=== PATIENT | female | born 1965 | race Two or more races ===

== ENCOUNTER 2024-11-06 16:30 | Outpatient (RCR) | payer MEDICAID, SELFPAY ==
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
--- NOTE | 2024-10-23 16:50 | PT.ODAYNRPT ---
PT Outpatient Daily Note OP Daily Note Outpatient Physical Therapy Treatment Date: 10/23/24 Visit Reasons: lumbago with sciatica right side Subjective: Low pain level today of LB Objective: See F/S for therex MT: STM L5-S1 area with flexbar x5' Assessment: Low tissue irritability with therex and MT today and no pain with trunk extension in prone Plan: Continue per POC Length of Time (minutes) of Treatment: 30 Minutes Procedure Charges Therapeutic Exercise 30 minutes: Yes
--- NOTE | 2024-10-30 17:41 | PT.ODAYNRPT ---
PT Outpatient Daily Note OP Daily Note Outpatient Physical Therapy Treatment Date: 10/30/24 Visit Reasons: lumbago with sciatica right side Subjective: Low pain level today of LB Objective: See F/S for therex MT: STM L5-S1 area with flexbar x7' Assessment: Low tissue irritability with therex and MT today and no pain with trunk extension in prone Plan: Continue per POC Length of Time (minutes) of Treatment: 30 Minutes Procedure Charges Therapeutic Exercise 30 minutes: Yes
--- NOTE | 2024-11-06 18:02 | PT.ODAYNRPT ---
PT Outpatient Daily Note OP Daily Note Outpatient Physical Therapy Treatment Date: 11/06/24 Visit Reasons: lumbago with sciatica right side Subjective: Low pain level today of LB Objective: See F/S for therex MT: STM L5-S1 area with flexbar x7' Assessment: Low tissue irritability with therex and MT today and no pain with trunk extension in prone Plan: Continue per POC Procedure Charges Therapeutic Exercise 30 minutes: Yes
== END 2024-11-12 23:59 | disposition home or self-care (01) ==
LOC: CPTX 16:30
PROVIDERS: PCP Family Medicine; Referring Provider Family Medicine; Visit Provider Family Medicine
DX: M54.16 Radiculopathy, lumbar region (principal); M54.41 Lumbago with sciatica, right side
CPT/HCPCS: 97110; 97162

== ENCOUNTER 2024-12-05 16:30 | Outpatient (RCR) | payer MEDICAID, SELFPAY ==
--- NOTE | 2024-11-13 18:16 | PT.ODAYNRPT ---
PT Outpatient Daily Note OP Daily Note Outpatient Physical Therapy Treatment Date: 11/13/24 Visit Reasons: Sciatica right side Subjective: Good days and bad days Objective: See F/S for therex Assessment: Slow progress with goals due to variable back pain. Plan: Continue per POC Length of Time (minutes) of Treatment: 30 Minutes Procedure Charges Therapeutic Exercise 30 minutes: Yes
--- NOTE | 2024-12-05 17:45 | PT.ODAYNRPT ---
PT Outpatient Daily Note OP Daily Note Outpatient Physical Therapy Treatment Date: 12/05/24 Visit Reasons: Sciatica right side Subjective: Increased LBP like burning after working all day in the [employer] Objective: See F/S for therex Assessment: Slow progress with goals due to variable back pain. Plan: Continue per POC Length of Time (minutes) of Treatment: 30 Minutes Procedure Charges Therapeutic Exercise 30 minutes: Yes
--- NOTE | 2024-12-17 17:59 | PT.ODS1RPT ---
PT OP Progress/Discharge Note Date of Service: 12/17/24 Progress Note/DC Note Progress Note/Discharge Note: DC Note Patient Information Visit Reasons: Sciatica right side Service Continue Service or Discharge: Discharge Discharge Date: 12/17/24 Status Subjective: Pt called to D/C and cancel today's appt Objective: No Rx, no charges Assessment: Pt attended the eval and 6 Rx sessions and then called to D/C, didn't give a reason. Plan: Self-D/C
== END 2024-12-12 23:59 | disposition home or self-care (01) ==
LOC: CPTX 16:30
PROVIDERS: PCP Family Medicine; Referring Provider Family Medicine; Visit Provider Family Medicine
DX: M54.16 Radiculopathy, lumbar region (principal); M54.41 Lumbago with sciatica, right side
CPT/HCPCS: 97110

== ENCOUNTER 2025-05-13 15:30 | Outpatient (RCR) | payer MEDICAID, SELFPAY ==
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
--- NOTE | 2025-05-02 17:27 | PT.ODAYNRPT ---
PT Outpatient Daily Note OP Daily Note Outpatient Physical Therapy Treatment Date: 05/02/25 Visit Reasons: Rt side sciatica Subjective: Pt c/o of minimal LBP that radiates down Rt LE. Objective: See F/S for therex performed Assessment: No increase in pain to low back with therex; minimal cues required to improve form with PPT. Good tolerance and appropriate fatigue with exercises. Plan: Continue with POX Length of Time (minutes) of Treatment: 30 Minutes Procedure Charges Therapeutic Exercise 30 minutes: Yes
--- NOTE | 2025-05-06 17:44 | PT.ODAYNRPT ---
PT Outpatient Daily Note OP Daily Note Outpatient Physical Therapy Treatment Date: 05/06/25 Visit Reasons: Rt side sciatica Subjective: Pt c/o of minimal LBP. Objective: See F/S for therex performed Assessment: Demo'd improvement with ability to maintain PPT and engage w/ supine marches and glute bridges. No increase in pain with therex, appropriate fatigue. Plan: Continue with POC Length of Time (minutes) of Treatment: 30 Minutes Procedure Charges Therapeutic Exercise 30 minutes: Yes
--- NOTE | 2025-05-08 17:14 | PT.ODAYNRPT ---
PT Outpatient Daily Note OP Daily Note Outpatient Physical Therapy Treatment Date: 05/08/25 Visit Reasons: Rt side sciatica Subjective: Pt c/o of LBP radiating down to Rt knee; states it is due to a long day at work. Objective: See F/S for therex performed Assessment: Min vc's and tc's to engage PPT and hold prior to bridging; pt able to self correct. Decrease in LBP and R LE pain post session. Advised to continue piriformis st and sciatic nerve glides at home. Plan: Continue with POC Length of Time (minutes) of Treatment: 30 Minutes Procedure Charges Therapeutic Exercise 30 minutes: Yes
--- NOTE | 2025-05-13 17:23 | PT.ODAYNRPT ---
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 Objective: See F/S for therex performed Assessment: Progressed to bug exercise, demo'd good ability to maintain PPT while extending opposite arm and leg. No increase in pain with therex performed. Plan: Continue with POC Length of Time (minutes) of Treatment: 30 Minutes Procedure Charges Therapeutic Exercise 30 minutes: Yes
== END 2025-05-14 23:59 | disposition home or self-care (01) ==
LOC: CPTX 15:30
PROVIDERS: PCP Family Medicine; Referring Provider Family Medicine; Visit Provider Family Medicine
DX: M54.41 Lumbago with sciatica, right side (principal)
CPT/HCPCS: 97110; 97162

== ENCOUNTER → 2025-06-05 | Outpatient (CLI) | payer MEDICAID, SELFPAY ==
--- NOTE | 2025-06-05 10:00 | XR_ITS ---
Examination: MRI lumbar spine without contrast Date and time of exam: June 05, 2025, 1150 hours INDICATIONS: Low back pain radiating down the right leg with weakness in the right leg 5 years Technique: Multiple MRI axial and sagittal sections lumbar spine. Sagittal T2-weighted images, TR 3500, TE 118 T1 weighted transverse sections, TR 688 T8.5, T2-weighted sagittal sections T1 weighted sagittal sections TR 621, TE 30 T2 axial sections, TR 4, 190, TE 84. Findings: Grade 1 anterolisthesis L4 on L5 Moderate disc narrowing posteriorly L4-L5 Diffuse lumbar disc desiccation most prominent at L4-L5 Adequate marrow signal lumbar vertebral bodies L5-S1 no disc protrusion L4-L5 moderate overall spinal stenosis, axial image 4, 6 mm central lumbar disc bulge extending to the foraminal regions with mild bilateral L4 ganglionic compression More cephalad levels unremarkable IMPRESSION: Moderate degenerative disc disease L4-L5 L4-L5 moderate overall spinal stenosis, 6 mm central lumbar disc bulge extending to the foraminal regions with mild bilateral L4 ganglionic compression
== END | disposition home or self-care (01) ==
LOC: SMRI 09:55
PROVIDERS: PCP Family Medicine; Referring Provider Family Medicine; Visit Provider Family Medicine
DX: M54.41 Lumbago with sciatica, right side (principal); M51.360 Other intervertebral disc degeneration, lumbar region with discogenic back pain only; M48.061 Spinal stenosis, lumbar region without neurogenic claudication; G95.20 Unspecified cord compression
CPT/HCPCS: 72148

== ENCOUNTER 2025-06-10 17:00 | Outpatient (RCR) | payer MEDICAID, SELFPAY ==
--- NOTE | 2025-05-16 17:20 | PT.ODAYNRPT ---
PT Outpatient Daily Note OP Daily Note Outpatient Physical Therapy Treatment Date: 05/16/25 Visit Reasons: Back pain Subjective: Pt c/o minimal LBP. Reports improvement with experiencing less back pain during work and pain no longer lingers. Objective: See F/S for therex performed Assessment: Improved ability to maintain PPT with bug exercise; no corrective cues required. Advised to continue LE stretches and sciatic nerves glides at home. Plan: Continue with POC Length of Time (minutes) of Treatment: 30 Minutes Procedure Charges Therapeutic Exercise 30 minutes: Yes
--- NOTE | 2025-05-29 17:30 | PT.ODAYNRPT ---
PT Outpatient Daily Note OP Daily Note Outpatient Physical Therapy Treatment Date: 05/29/25 Visit Reasons: Back pain Subjective: Pt reports LBP and R LE pain that comes and goes throughout the day Objective: See F/S for therex Assessment: Slow progress with therapy goals due to continued LBP and radiculopathy into R LE Plan: Continue with POC Length of Time (minutes) of Treatment: 30 Minutes Procedure Charges Therapeutic Exercise 30 minutes: Yes
--- NOTE | 2025-06-10 17:44 | PT.ODAYNRPT ---
PT Outpatient Daily Note OP Daily Note Outpatient Physical Therapy Treatment Date: 06/10/25 Visit Reasons: Back pain Subjective: Pt reports LBP and R LE pain that comes and goes throughout the day Objective: See F/S for therex Assessment: Less LBP allowed for improved core activation with therex today Plan: Continue with POC Length of Time (minutes) of Treatment: 30 Minutes Procedure Charges Therapeutic Exercise 30 minutes: Yes
== END 2025-06-14 23:59 | disposition home or self-care (01) ==
LOC: CPTX 17:00
PROVIDERS: PCP Family Medicine; Referring Provider Family Medicine; Visit Provider Family Medicine
DX: M54.41 Lumbago with sciatica, right side (principal)
CPT/HCPCS: 97110

== ENCOUNTER 2025-07-02 16:30 | Outpatient (RCR) | payer MEDICAID, SELFPAY ==
--- NOTE | 2025-06-24 18:04 | PT.ODAYNRPT ---
PT Outpatient Daily Note OP Daily Note Outpatient Physical Therapy Treatment Date: 06/24/25 Visit Reasons: back pain Subjective: Pt reports LBP and R LE pain that comes and goes throughout the day Objective: See F/S for therex MT: StM L/s with flexbar x7' Assessment: Less LBP allowed for improved core activation with therex today Plan: Continue with POC Length of Time (minutes) of Treatment: 30 Minutes Procedure Charges Therapeutic Exercise 30 minutes: Yes
--- NOTE | 2025-07-02 18:17 | PT.ODAYNRPT ---
PT Outpatient Daily Note OP Daily Note Outpatient Physical Therapy Treatment Date: 07/02/25 Visit Reasons: back pain Subjective: Pt reports LBP and R LE pain that comes and goes throughout the day but overall less pain since starting therapy. Objective: See F/S for therex MT: StM L/s with flexbar x7' Assessment: Less LBP allowed for improved core activation with therex today Plan: Continue with POC Length of Time (minutes) of Treatment: 30 Minutes Procedure Charges Therapeutic Exercise 30 minutes: Yes
== END 2025-07-14 23:59 | disposition home or self-care (01) ==
LOC: CPTX 16:30
PROVIDERS: PCP Family Medicine; Referring Provider Family Medicine; Visit Provider Family Medicine
DX: M54.41 Lumbago with sciatica, right side (principal)
CPT/HCPCS: 97110

== ENCOUNTER 2025-07-22 17:00 | Outpatient (RCR) | payer MEDICAID, SELFPAY ==
--- NOTE | 2025-07-15 17:48 | PT.ODAYNRPT ---
PT Outpatient Daily Note OP Daily Note Outpatient Physical Therapy Treatment Date: 07/15/25 Visit Reasons: BACK PAIN Subjective: Pt reports LBP and R LE pain that comes and goes throughout the day but overall less pain since starting therapy. Objective: See F/S for therex Assessment: Less LBP allowed for improved core activation with therex today Plan: Continue with POC Length of Time (minutes) of Treatment: 30 Minutes Procedure Charges Therapeutic Exercise 30 minutes: Yes
--- NOTE | 2025-07-22 18:08 | PT.ODS1RPT ---
PT OP Progress/Discharge Note Date of Service: 07/22/25 Progress Note/DC Note Progress Note/Discharge Note: DC Note Patient Information Visit Reasons: BACK PAIN Service Continue Service or Discharge: Discharge Discharge Date: 07/22/25 Status Subjective: Overall better with less pain in standing for 2 hrs and HH chores. She is able to work. Pt says she is going OOT and to be done with therapy. Objective: L/S AROM: FB: to floor Extension: 30% with LBP SB: full Rotation: full with min pain Assessment: Pt has attended 12 therapy visits including the evaluation and made very good progress to meet therapy goals. She can stand and do HH chores for 2 hrs with minimal LBP and the LB is minimally TTP to meet those goals. She is doing HEP independently to meet that goal. Pt was given updated HEP. Plan: D/C with HEP Procedure Charges Therapeutic Exercise 30 minutes: Yes
== END 2025-08-14 23:59 | disposition home or self-care (01) ==
LOC: CPTX 17:00
PROVIDERS: PCP Family Medicine; Referring Provider Family Medicine; Visit Provider Family Medicine
DX: M54.41 Lumbago with sciatica, right side (principal)
CPT/HCPCS: 97110